=== PATIENT | female | born 1960 | race Caucasian/White ===

== ENCOUNTER 2017-08-23 12:49 | Day surgery (SDC) | payer OTHER ==
--- NOTE | 2017-08-17 20:36 | HP ---
PREOPERATIVE HISTORY AND PHYSICAL: DATE OF ADMISSION/SURGERY: 08/23/17 [facility] ATTENDING SURGEON: Heidi Drummond MD * (DICTATED BY ABHINAV WHITE) PROCEDURE: Left shoulder arthroscopic rotator cuff repair, decompression and debridement. CHIEF COMPLAINT: Left shoulder pain. HISTORY OF PRESENT ILLNESS: Tiana is a 56-year-old female who presents to the clinic for left shoulder pain due to a rotator cuff repair. She has failed conservative measures and has therefore, agreed to undergo a left shoulder arthroscopic rotator cuff repair, decompression, and debridement with Dr. Drummond on 08/23/17. PAST MEDICAL HISTORY: Thyroid cancer, COPD, high cholesterol, mild dementia, diverticulitis, GERD, anemia, depression, anxiety. PAST SURGICAL HISTORY: , right hand reconstruction, cholecystectomy, hysterectomy, removal of thyroid and parathyroid tumor and removal of calcium deposits from her neck. The patient states that she has difficulty waking up with anesthesia and needs to be intubated prior to surgery. MEDICATIONS: 1. Nicotine 21 mg for 24 hours as directed. 2. Spiriva HandiHaler 18 mcg 1 inhalation by mouth in the morning. 3. Venlafaxine 75 mg 1 by mouth daily. 4. Caltrate 600 mg 2 teaspoons 3 times a day. 5. Alprazolam 2 mg take 1 by mouth up to 3 times a day as needed. 6. Levothyroxine sodium 175 mcg 1 by mouth every morning on an empty stomach. 7. 500 mg take 1 by mouth every day. 8. Oxycodone 5 mg take 1 to 2 tabs up to 3 times a day as needed for pain. 9. Calcitriol 0.5 mcg take 1 capsule by mouth every day. 10. Dicyclomine 20 mg 1 by mouth every day as needed. 11. DocQlace 100 mg take 1 capsule by mouth twice a day as needed to keep stool soft. 12. Incruse Ellipta 62.5 mcg spray inhalation inhale 1 puff by mouth daily for COPD. 13. Loratadine 10 mg take 1 by mouth every day. 14. Spiriva Respimat 2.5 mcg/ACT inhale 1 puff by mouth every day. 15. Trazodone HCl 100 mg 1 by mouth at bedtime as needed. 16. Ventolin HFA 108 mcg/ACT inhale 2 puffs by mouth every 4 hours as needed for bronchospasm. 17. Vitamin D 2000 units take 1 by mouth every day. 18. Naproxen 500 mg take 1 by mouth twice a day. 19. Cyclobenzaprine HCl 10 mg 1 by mouth 3 times a day as needed for spasms. 20. Cyanocobalamin 2500 mcg take 1 capsule daily by mouth. 21. Omeprazole 20 mg 1 by mouth every day. 22. [place] Bismuth 262 mg for 15 mL as needed. 23. Polyethylene glycol 3350 mg mixed with 8 ounces of water as needed for constipation. ALLERGIES: BIAXIN. FAMILY HISTORY: Positive for diabetes and cancer. SOCIAL HISTORY: The patient is disabled. She is a former smoker, she recently quit. She denies alcohol use. She does report smoking marijuana. REVIEW OF SYSTEMS: A 14-point review of systems was reviewed with the patient. Positive for shortness of breath with exertion due to COPD and GERD. She also bruises easily. She denies chest pain. She denies bleeding disorder. She denies history of DVT or PE. PHYSICAL EXAMINATION GENERAL: Well-developed, well-nourished 56-year-old female in no acute distress. Alert and oriented x3 with appropriate mood and affect. VITAL SIGNS: Height 65, weight 225. Pulse 76, blood pressure 116/76, temperature 98.4. BMI is 37.4. HEENT: Normocephalic, atraumatic. PERRLA. NECK: Supple. Throat clear. PULMONARY: Lungs clear to auscultation bilaterally. No wheezing, rhonchi, or rales. CARDIO: Regular rate and rhythm. S1 and S2. No murmurs, gallops or rubs. No edema. ABDOMEN: Positive bowel sounds. Soft, nontender. NEURO: Alert and oriented x3. Cranial nerves grossly intact. Sensation is intact to light touch. MUSCULOSKELETAL: Right upper extremity: Skin is intact. No warmth or erythema. Tender over the subacromial space and the bicipital groove. Forward flexion to 150, abduction 100, external rotation 75. Internal rotation to lumbar spine. Positive Oliva, Neer, Speed, [place] and Shayy's. +4/5 strength in supraspinatus testing, +5/5 bear hug. +2 radial pulses. Sensation intact to light touch distally. STUDIES: MRI revealed partial thickness tear of the rotator cuff and a SLAP tear. IMPRESSION: Left shoulder rotator cuff tear. PLAN: The patient is scheduled to undergo a left shoulder arthroscopic rotator cuff repair, decompression and debridement with Dr. Drummond on 08/23/17. She will be out of work at this time. She will return to the office 10 to 14 days postoperative followup and suture removal. Oxycodone was sent to the patient's pharmacy for postop pain management and Keflex was sent for antibiotic prophylaxis. ABHINAV WHITE [id number]/[facility] #: [id number] TERRA
[~2017-08-23 12:49] MED LIST: Buffered Lidocaine 0.9% SYRIN* 5 ML/SYR SYRINGE INTRADERM ONE; Famotidine IV* 10 MG/ML 2 ML (20 mg) IV ONE; Lidocaine 1%* 5 ML VIAL ONE; ROPIVACAINE 5 MG/ML 30 ML BTL (0.5%) ONE
[2017-08-23] MEDS ORDERED: Famotidine IV* 10 MG/ML 2 ML (20 mg) ONE (12:51)
[2017-08-23] MEDS ORDERED: ceFAZolin 2 GM PREMIX (*) 50 ML IVPB ONE (12:55)
[2017-08-23] MEDS ORDERED: fentaNYL* 50 MCG/ML 2 ML VIAL (100 MCG VIAL) ONE ×2 (13:04→14:32)
[2017-08-23] MEDS ORDERED: Midazolam* 1 MG/ML 5 ML VIAL (5 MG) ONE (13:05)
[2017-08-23] MEDS ORDERED: Bupivacaine 0.25% SDV* 30 ML ONE (13:57)
[2017-08-23] MEDS ORDERED: Succinylcholine* 20 MG/ML 10 ML VIAL ONE (14:45)
[2017-08-23] MEDS ORDERED: Dexamethasone IV* 4 MG/ML 1 ML (4 MG) ONE (14:45)
[2017-08-23] MEDS ORDERED: Propofol* 10 MG/ML 20 ML BTL IV PUSH ONE (14:45)
[2017-08-23] MEDS ORDERED: Lidocaine 2% PF * 5 ML VIAL ONE (14:45)
[2017-08-23] MEDS ORDERED: Ondansetron INJ* 2 MG/ML VIAL ONE (14:45)
[2017-08-23] MEDS ORDERED: DiMENhydriNATE IV* 50 MG/ML VIAL ONE (14:45)
[2017-08-23] MEDS ORDERED: Ketorolac INJ* 30 MG/ML 1 ML VIAL ONE (14:49)
[2017-08-23] MEDS ORDERED: methylPREDNISolone ACETATE 80* 80 MG/ML 1 ML VIAL ONE (15:26)
[2017-08-23] MEDS ORDERED: Acetaminophen TAB* 325 MG PO PRN (15:34)
[2017-08-23] MEDS ORDERED: HYDROmorphone INJ* 1 MG/ML CARPUJECT SYRINGE IV PRN (15:34)
[2017-08-23] MEDS ORDERED: DiMENhydriNATE IV* 50 MG/ML VIAL IV PUSH PRN (15:34)
[2017-08-23] MEDS ORDERED: oxyCODONE TAB* 5 MG TAB PO PRN (15:34)
[2017-08-23 16:47] VITALS: BP 98/77
--- NOTE | 2017-08-25 03:01 | OP ---
CC: PCP* DATE OF OPERATION: 08/23/17 - [facility] DATE OF : 64 SURGEON: Heidi Drummond MD COATING MACHINE HELPER: ABHINAV George. An placement assistant was needed for the entirety of the case to help with positioning, retraction and was utilized throughout all portions of the case. ANESTHESIOLOGIST: Dr. Yanez. ANESTHESIA: General interscalene block. PRE-OP DIAGNOSIS: Left shoulder partial thickness rotator cuff tear with bicipital tendonitis and impingement. POST-OP DIAGNOSIS: Intact rotator cuff with SLAP tear and bicipital tendonitis and subacromial impingement. OPERATIVE PROCEDURE: 1. Left shoulder arthroscopy with extensive glenohumeral debridement including debridement of the subscapularis and biceps tenotomy as well as subacromial decompression with acromioplasty. 2. Subacromial injection with 80 mg of Depo-Medrol. COMPLICATIONS: None. ESTIMATED BLOOD LOSS: Minimal. INDICATIONS: Tiana Nieto is a 56-year-old female with a prolonged history of right shoulder pain, this has been going on several months. She failed conservative management. She has had injections done with physical therapy. She still has persistent pain. She was reporting some early neck symptoms as well. After discussion of risks and benefits of operative versus nonoperative treatment, she has elected to proceed with surgical treatment. We did talk that she may have a rotator cuff tear, which may require treatment. She quit smoking so that she could heal well from the surgery. Risks and benefits were discussed at length, they included but are not limited to, bleeding, infection, damage to nerves, vessels, surrounding structures, wound nonhealing, persistent pain, need for further surgery, scarring, stiffness, incomplete relief of symptoms, risks of anesthesia, need for further surgeries. She has elected to proceed. DESCRIPTION OF PROCEDURE: The patient was greeted in the preoperative area by the attending surgeon. Correct extremity was marked and consent was confirmed. The patient then underwent interscalene nerve block in the preoperative area by the anesthesiologist after which she was brought back to the operating suite where she was placed in supine position on the operating room table. She underwent general anesthesia with endotracheal intubation, after which she was placed in the right lateral decubitus position with all bony prominences padded. There was an axillary roll, she was secured using a peg board and the left arm was draped unsterile with 10 pounds of traction. The left shoulder was then prepped and draped in the usual sterile fashion beginning with chlorhexidine soap, scrub and alcohol wipe and a final prep with ChloraPrep. After appropriate surgical pause indicating side, site, procedure, and administration of antibiotics, a standard postero-lateral portal was made using 11 blade. The scope was introduced to the joint. Joint was examined. There were grade 0 to 1 changes of the glenohumeral joint. There was a type 2 SLAP tear and unstable flaps. The biceps was visualized and found to have erythema along the posterior aspect. The undersurface of the subscapularis had partial tearing, approximately 5% to 10% tearing. The undersurface of the rotator cuff was intact. Rotator cable was intact. Inferior recess was intact without any loose bodies. The remainder of the labrum was intact with mild fraying. The anterior portal was made in an outside-in fashion. The shaver was used to debride back the labrum, take the biceps through range of motion, was then tenotomized. The undersurface of the subscapularis was then debrided back using the shaver. The undersurface of the supraspinatus tendon was probed and found to be intact without any obvious tearing. The scope was then repositioned in the subacromial space and a lateral portal was made in outside-in fashion. The shaver was used to debride back the abundant hyperemic bursa. The bursal side of the cuff had some irritation and some adhesive bursa but was otherwise intact. This was probed carefully and there was no obvious tearing. The under-surface of the acromion was then skeletonized using the electrocautery device as a moderate sized spur was identified and this was debrided back using 4-0 oval dara. All excess bone and debris was removed. Final images were obtained. The shoulder was taken through range of motion. There was no evidence of obvious rotator cuff tearing. The decision was made to inject the shoulder with 80 mg of Depo- Medrol. An 18-gauge needle was placed under arthroscopic visualization. The wounds were copiously irrigated. The portals were closed with 3-0 nylon. The subacromial space was injected with 80 mg of Depo- Medrol. Sterile dressings were applied as well as Cryo/Cuff and a regular sling. She was awoken from anesthesia and transferred to the PACU in stable condition. POSTOPERATIVE PLAN: She will be non-weightbearing. She will be allowed range of motion as tolerated. I will see her back in 10 to 14 days. She will be discharged on pain medication. DVT prophylaxis was considered, but deferred due to no previous personal or family history. I will see the patient back in 10 to 14 days. [id number]/[facility] #: [id number] TERRA
== END 2017-08-23 16:48 | disposition home or self-care (01) ==
LOC: OREAST 12:49
PROVIDERS: ATTEND Orthopaedic Surgery
DX: M75.112 Incomplete rotator cuff tear or rupture of left shoulder, not specified as traumatic (principal); M75.22 Bicipital tendinitis, left shoulder; M75.42 Impingement syndrome of left shoulder; J44.9 Chronic obstructive pulmonary disease, unspecified; Z87.891 Personal history of nicotine dependence; F41.8 Other specified anxiety disorders; Z79.899 Other long term (current) drug therapy
CPT/HCPCS: J0330; J0690; J1040; J1100; J1240; J1885; J2250; J2405; J2704; J2795; J3010

== ENCOUNTER 2018-06-09 17:41 | Emergency (ER) | payer OTHER ==
--- OUTSIDE RECORDS SUMMARY | 2018-06-09 17:47 | XMS REPORT ---
:1960 External Reference #:[id number] Author Organization [employer] Address [address] [place] [address] [place] [address] Phone [phone] Care Team Providers Name Role Phone Salty Slade MD Primary Care Physician Unavailable Payers Type Date Identification Numbers Payment Provider Subscriber Commercial Policy Number: [id number] Mark Singhomarmandi PayID: [id number] [address] [place] [address] Commercial Effective: 2012 Policy Number: [id number] Mark Singhomarer Expires: 2017 Group Number: [id number] [address] PayID: [id number] [place] [address] Medigap Part B Expires: 2017 Policy Number: [id number] Medicaid Tiana Nieto Group Name: 1 1 [address] PayID: [id number] [place] [address] Problems Date Description Provider Status Onset: 02/02/2013 Tobacco user Radha Mejia M.D. Active Onset: 02/02/2013 Obesity Radha Mejia M.D. Active Onset: 02/02/2013 Malaise and fatigue Radha Mejia M.D. Active Onset: 02/02/2013 FH: Cardiovascular disease Radha Mejia M.D. Active Onset: 01/05/2017 Sprain of shoulder and upper arm Heidi Drummond MD Active Onset: 01/05/2017 Injury of shoulder region Heidi Drummond MD Active Social History Type Date Description Comments Marital Status Marital Status 30 years Marital Status Significant Other Lives With Boyfriend Occupation day care Cigarette Use Patient is a current cigarette smoker, smokes every day Cigarette Use 1 pk per day Cigarette Use Pack Years - 20 ETOH Use quit 20 former abuse Smoking Patient is a current smoker, smokes every day Recreational Drug Use Denies Drug Use Exercise Type/Frequency Does not exercise Sexual Hx text yes Allergies, Adverse Reactions, Alerts Date Description Reaction Status Severity Comments 02/02/2013 Biaxin Contact dermatitis, Nausea and active Vomiting Medications Medication Date Status Form Strength Qnty SIG Indications Ordering Provider Oxycodone HCL 08/18 Active Tablets 10mg 60tab take 1/2-1 s tab every Yaseen, 4-6 hours MD as needed pain Oxycodone HCL 08/17 Active Tablets 5mg 60tab 1-2 tabs by S46.012D s mouth every Yaseen, 4-6 hours MD as needed post op pain. Do not fill until 08/21/17 Nicotine 02/02 Active Patches 21mg/24HR 28uni as directed 305.1 24HR ts Jessica Mejia Spiriva 02/02 Active Capsules 18mcg 1mont 1 Radha Handale h inhalation oswaldo Mejia qam, M.D. Venlafaxine HCL Active Tablets 75mg 60tab 1 po qd Unknown /0000 s Alprazolam Active Tablets 2mg Take One Unknown /0000 Tablet By Mouth Up To Three Times A Day as Needed Maximum Da Levothyroxine Active Tablets 175mcg Take One Unknown Sodium /0000 Tablet By Mouth Every Morning On An Empty Stomach Mag-G Active Tablets 500(27Mg) Take One Unknown /0000 mg Tablet By Mouth Every Day Oxycodone HCL Active Tablets 5mg Take One To Unknown /0000 Two Tablets By Mouth Up To Three Times A Day as Needed For Calcitriol Active Capsules 0.5mcg Take One Unknown /0000 Capsule By Mouth Every Day Dicyclomine HCL Active Tablets 20mg Take One Unknown /0000 Tablet By Mouth Every Day as Needed Docqlace Active Capsules 100mg Take One Unknown /0000 Capsule By Mouth Twice A Day as Needed To Keep Stools Soft Incruse Ellipta Active Aerosol 62.5mcg/I Inhale 1 Unknown /0000 nh puff By Mouth Daily For Chronic Obstructive Lung Disease Loratadine Active Tablets 10mg Take One Unknown /0000 Tablet By Mouth Every Day Spiriva Respimat Active Aerosol 2.5mcg/Ac Inhale One Unknown / t puff By Mouth Every Day Ventolin HFA Active Aerosol 108(90Bas Inhale 2 Unknown / e) Puffs By mcg/Act Mouth Every 4 Hours as Needed For Bronchospas m Vitamin D Active Tablets 2000Unit Take One Unknown /0000 Tablet By Mouth Every Day Naproxen Active Tablets 500mg 1 tablet Unknown with food by mouth twice a day Cyclobenzaprine Active Tablets 10mg one by Unknown HCL /0000 mouth three times a day as needed spasm Cyanocobalamin Active Tablets Sub 2500mcg take one Unknown capsule/tab let daily by mouth Omeprazole Active Capsules DR 20mg 1 by mouth Unknown / every day [place] Bismuth Active Suspension 262mg/15M Unknown / L Polyethylene Active Packet 3350NF mix with 8 Unknown Glycol 3350 /0000 ounces of water as needed constipatio n Keflex 08/17 Hx Capsules 500mg 12cap take 1 tab S46.012D /2016 s by mouth Abraham Drummond four times 09/01 a day x days post op. DO Not Take Before Surgery. Do not fill until 08/21/17 Caltrate 600 Hx Liquid 2 tsp tid / - 05/29 Trazodone HCL Hx Tablets 100mg Take One Tablet By - Mouth AT 05/29 Bedtime Needed Medications Administered in Office Medication Date Status Form Strength Qnty SIG Indications Ordering Provider Triamcinolone 01/05/ Administered Injection Zaneb (Kenalog) 2016 MD Hoda Vital Signs Date Vital Result Comment 05/30/2018 Height 65 inches 5'5" Weight 195.00 lb BP Systolic 118 mmHg BP Diastolic 78 mmHg Body Temperature 98.0 F BMI (Body Mass Index) 32.4 kg/m2 05/03/2018 Height 65 inches 5'5" Weight 225.00 lb BP Systolic 110 mmHg BP Diastolic 70 mmHg Respiratory Rate 20 /min Body Temperature 97.5 F Pain Level 8 BMI (Body Mass Index) 37.4 kg/m2 01/11/2018 Height 65 inches 5'5" Weight 225.00 lb BP Systolic 114 mmHg BP Diastolic 62 mmHg Respiratory Rate 20 /min Pain Level 0 BMI (Body Mass Index) 37.4 kg/m2 11/02/2017 Height 65 inches 5'5" Weight 225.00 lb BP Systolic 126 mmHg BP Diastolic 80 mmHg Respiratory Rate 20 /min Pain Level 0 BMI (Body Mass Index) 37.4 kg/m2 10/05/2017 Height 65 inches 5'5" Weight 225.00 lb BP Systolic 124 mmHg BP Diastolic 60 mmHg Respiratory Rate 20 /min Pain Level 8 BMI (Body Mass Index) 37.4 kg/m2 09/03/2017 Height 65 inches 5'5" Weight 225.00 lb Heart Rate 83 /min Respiratory Rate 15 /min Body Temperature 97.9 F Pain Level 0 BMI (Body Mass Index) 37.4 kg/m2 08/17/2017 Height 65 inches 5'5" Weight 225.00 lb Heart Rate 76 /min BP Systolic 116 mmHg BP Diastolic 76 mmHg Body Temperature 98.4 F BMI (Body Mass Index) 37.4 kg/m2 07/20/2017 Height 65 inches 5'5" Weight 225.00 lb Heart Rate 72 /min BP Systolic 114 mmHg BP Diastolic 72 mmHg Respiratory Rate 16 /min Body Temperature 97.6 F Pain Level 0 BMI (Body Mass Index) 37.4 kg/m2 06/29/2017 Height 65 inches 5'5" Weight 224.00 lb BP Systolic 114 mmHg BP Diastolic 70 mmHg Body Temperature 96.4 F Pain Level 10 BMI (Body Mass Index) 37.3 kg/m2 05/06/2017 Height 65 inches 5'5" Weight 224.00 lb Heart Rate 83 /min BP Systolic 109 mmHg BP Diastolic 71 mmHg Body Temperature 97.6 F BMI (Body Mass Index) 37.3 kg/m2 03/04/2017 Height 65 inches 5'5" Weight 210.00 lb Heart Rate 77 /min BP Systolic Sitting 111 mmHg BP Diastolic Sitting 71 mmHg Respiratory Rate 16 /min Body Temperature 97.7 F Pain Level 6 BMI (Body Mass Index) 34.9 kg/m2 01/05/2017 Height 65 inches 5'5" Weight 240.00 lb BP Systolic 128 mmHg BP Diastolic 80 mmHg Pain Level 10 BMI (Body Mass Index) 39.9 kg/m2 02/02/2013 Height 66 inches 5'6" Weight 241.00 lb Heart Rate 84 /min BP Systolic Sitting 110 mmHg BP Diastolic Sitting 84 mmHg BMI (Body Mass Index) 38.9 kg/m2 Results Test Date Test Result H/L Range Note CBC Auto Diff 09/08/2017 White Blood Count 12.0 10^3/uL High 3.5-10.8 Red Blood Count 4.48 10^6/uL 4.0-5.4 Hemoglobin 12.8 g/dL 12.0-16.0 Hematocrit 39 % 35-47 Mean Corpuscular Volume 86 fL 80-97 Mean Corpuscular Hemoglobin 29 pg 27-31 Mean Corpuscular HGB Conc 33 g/dL 31-36 Red Cell Distribution Width 15 % 10.5-15 Platelet Count 436 10^3/uL 150-450 Mean Platelet Volume 8 um3 7.4-10.4 Abs Neutrophils 6.4 10^3/uL 1.5-7.7 Abs Lymphocytes 4.5 10^3/uL 1.0-4.8 Abs Monocytes 0.8 10^3/uL 0-0.8 Abs Eosinophils 0.1 10^3/uL 0-0.6 Abs Basophils 0.1 10^3/uL 0-0.2 Abs Nucleated RBC 0 10^3/uL Granulocyte % 53.4 % 38-83 Lymphocyte % 37.9 % 25-47 Monocyte % 6.6 % 1-9 Eosinophil % 1.2 % 0-6 Basophil % 0.9 % 0-2 Nucleated Red Blood Cells % 0 Pthi 09/08/2017 Calcium (PTH Intact) 7.2 mg/dL Low 8.6-10.3 PTH Intact < 1.3 pmol/L Low 1.3-9.3 Comp Metabolic Panel 09/08/2017 Sodium 140 mmol/L 133-145 Potassium 3.8 mmol/L 3.5-5.0 Chloride 102 mmol/L 101-111 Co2 Carbon Dioxide 28 mmol/L 22-32 Anion Gap 10 mmol/L 2-11 Glucose 76 mg/dL 70-100 Blood Urea Nitrogen 15 mg/dL 6-24 Creatinine 0.78 mg/dL 0.51-0.95 BUN/Creatinine Ratio 19.2 8-20 Calcium 7.2 mg/dL Low 8.6-10.3 Total Protein 7.4 g/dL 6.4-8.9 Albumin 4.1 g/dL 3.2-5.2 Globulin 3.3 g/dL 2-4 Albumin/Globulin Ratio 1.2 1-3 Total Bilirubin 0.30 mg/dL 0.2-1.0 Alkaline Phosphatase 104 U/L 34-104 Alt 17 U/L 7-52 Ast 18 U/L 13-39 Egfr Non- 77.0 >60 Egfr 99.0 >60 1 Laboratory test finding 09/08/2017 Thyroxine 11.24 g/mL 6.09-12.23 TSH (Thyroid Stim Horm) 1.81 mcIU/mL 0.34-5.60 T3 Total 1.02 ng/mL 0.87-1.78 Vitamin D Total 25(Oh) 82.9 ng/mL High 20-50 1 Because ethnic data is not always readily available, this report includes an eGFR for both -Americans and non- Americans. The National Kidney Disease Education Program (NKDEP) does not endorse the use of the MDRD equation for patients that are not between the ages of 18 and 70, are , have extremes of body size, muscle mass, or nutritional status, or are non- or non-. According to the National Kidney Foundation, irrespective of diagnosis, the stage of the disease is based on the level of kidney function: Stage Description GFR(mL/min/1.73 m(2)) 1 Kidney damage with normal or decreased GFR 90 2 Kidney damage with mild decrease in GFR 60-89 3 Moderate decrease in GFR 30-59 4 Severe decrease in GFR 15-29 5 Kidney failure <15 (or dialysis) Procedures Date CPT Code Description Status 08/23/2017 52947 Arthroscopy,Shoulder Decompression Of Subacromial Space Completed W/Acromio 08/23/2017 03671 Arthroscopy,Shoulder Decompression Of Subacromial Space Completed W/Acromio 08/23/2017 17735 Arthroscopy Shoulder Debridement Extensive Completed 08/23/2017 88966 Arthroscopy Shoulder Debridement Limited Completed 01/05/2017 28343 Inject/Drain Joint/Bursa Major W/O US Completed Encounters Type Date Location Provider CPT E/M Dx Office Visit 05/03/2018 1:30p [facility] [place] [address] M25.511 C.M.A. S46.011D W19.xxxA Office Visit 01/11/2018 1:45p [facility] [place] [address] S46.012D C.M.A. S46.102D M25.562 S80.01xA Office Visit 07/20/2017 1:15p [facility] [place] [address] S46.012D C.M.A. S46.102A Office Visit 06/29/2017 10:15a [facility] [place] [address] S46.012D C.M.A. S46.102A S46.112D Office Visit 05/06/2017 1:00p [facility] [place] [address] S46.012D C.M.A. M25.511 S46.011A Office Visit 03/04/2017 2:00p [facility] [place] [address] S46.012A C.M.A. S46.012D Office Visit 01/05/2017 1:30p [facility] [place] [address] S46.012A C.M.A. S46.102A Office Visit 05/24/2014 2:00p [facility], 42768 780.52 M.DEd 780.79 309.81 Office Visit [facility]/20[facility]2014 [facility] [address] 562.11 [facility] Jessica 492.8 305.1 Office Visit 02/19/2014 3:03p [facility], 41479 562.11 [facility] Hospitalists Jessica 492.8 305.1 Office Visit 02/[facility] [address] 562.11 [facility] Jessica 492.8 305.1 Office Visit 02/02/2013 9:40a [facility] Radha Mejia M.D. 06070 305.1 - [place] 278.00 V70.0 780.79 V17.49 Plan of Care 05/30/2018 - ABHINAV George-CM25.511 Pain in right zuovsdqdB95.011D Strain of musc/tend the rotator cuff of right shoulder, subsFollow up:Follow up : 2 [id number] Cervicalgia
[2018-06-09 18:00] VITALS: BP 116/69
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
[2018-06-09] MEDS ORDERED: Ibuprofen TAB* 600 MG PO ONE (18:29)
--- NOTE | 2018-06-09 18:50 | RAD ---
INDICATION: Left wrist pain. TECHNIQUE: 3 views of the left wrist were obtained. FINDINGS: The bones are in normal alignment. No fracture is seen. Joint spaces appear maintained. IMPRESSION: NO EVIDENCE FOR FRACTURE.
== END 2018-06-09 19:25 | disposition home or self-care (01) ==
LOC: UCEAST 17:41
DX: M25.532 Pain in left wrist (principal); M79.642 Pain in left hand; R20.0 Anesthesia of skin; C73 Malignant neoplasm of thyroid gland; J44.9 Chronic obstructive pulmonary disease, unspecified; Z88.1 Allergy status to other antibiotic agents; Z87.891 Personal history of nicotine dependence
CPT/HCPCS: 99212; A9270-GY; G0463